=== PATIENT | male | born 1980 | race Caucasian/White ===

== ENCOUNTER 2020-09-21 14:32 | Outpatient (CLI) | payer OTHER, SELFPAY ==
[2020-09-21 15:14] LABS: Hematocrit 43.5 % (42.0-52.0); Hemoglobin 15.2 g/dL (14.0-18.0); Mean Corpuscular HGB Conc 34.9 g/dl (32-36); Mean Corpuscular Hemoglobin 32.3 pg (26-34); Mean Corpuscular Volume 92.4 fl (80-100); Mean Platelet Volume 12.8 fl (7.4-10.4); Platelet Count Result 73 k/mm3 (150-375); Red Blood Count 4.71 M/mm3 (4.6-6.20); Red Cell Distribution Width 12.6 % (11.5-14.5); White Blood Count 7.2 K/mm3 (4.5-10.0)
[2020-09-21 15:25] LABS: Alanine Aminotransferase 163 U/L (4-50); Albumin Level 4.3 g/dL (3.5-5.1); Alkaline Phosphatase 86 U/L (38-126); Anion Gap 6 mmol/L (8-16); Aspartate Amino Transferase 101 U/L (17-59); Bilirubin,Total 1.1 mg/dL (0.2-1.3); Blood Urea Nitrogen 11 mg/dL (9-20); Calcium 9.3 mg/dL (8.4-10.2); Carbon Dioxide 23 mmol/L (22-30); Chloride 108 mmol/L (98-107); Estimated Glomerular Filt Rate > 60; Glucose 116 mg/dL (75-110); Potassium 4.2 mmol/L (3.4-5.0); Sodium 137 mmol/L (137-145)
[2020-09-21 15:29] LABS: INR 1.1; Prothrombin Time 13.6 Seconds (11.1-14.7)
[2020-09-21 16:05] LABS: HIV 1/2 Ab P24 Ag Result Negative (Negative)
[2020-09-23 14:31] LABS: Hepatitis C RNA, Quant PCR 5160000 IU/mL
[2020-09-25 21:54] LABS: HCV Genotype, LiPA 1a
[2020-09-27 15:20] LABS: ALT 124 U/L (9-46); Alpha-2-Macroglobulin 264 mg/dL (106-279); Apolipoprotein A1 90 mg/dL (94-176); Fibrosis Score 0.69; Fibrosis Stage F3; GGT 90 U/L (3-90); Haptoglobin 102 mg/dL (43-212); Necroinflammat Act Grade A3
== END 2020-09-21 14:33 | disposition home or self-care (01) ==
PROVIDERS: Visit Provider Nurse Practitioner Family
DX: R76.8 Other specified abnormal immunological findings in serum (principal)
CPT/HCPCS: 36415; 80053; 81596; 85027; 85610; 86703; 87522; G0432

== ENCOUNTER → 2020-10-11 00:29 | Outpatient (CLI) | payer OTHER, SELFPAY ==
[2020-10-11 20:36] LABS: SARS-CoV-2 RNA PCR Negative
== END ==
PROVIDERS: Visit Provider Internal Medicine Gastroenterology
DX: Z01.812 Encounter for preprocedural laboratory examination (principal); Z20.822 Contact with and (suspected) exposure to COVID-19
CPT/HCPCS: C9803; U0003; U0005

== ENCOUNTER 2020-10-14 01:21 | Day surgery (SDC) | payer OTHER, SELFPAY ==
[2020-10-10 14:00] VITALS: BMI 34.9
[2020-10-14 07:41] VITALS: BP 155/91; PULSE 99; RESP 20; TEMP 36; O2SAT 98
[2020-10-14] MEDS: LACTATED RINGERS 1,000 ML 150 ML IV CONT (07:44)
--- NOTE | 2020-10-14 08:24 | WPDANESEPPF ---
Anes - Initial Pre Proc Eval Procedure: Operation Date: 10/14/20 08:45 Proposed Procedures p Esophagogastroduodenoscopy - Paddy Foster MD Date/Time: 10/14/20 08:24 Surgeon: Paddy Foster MD Pre Op Diagnosis: nausea Patient Data Age: 39 Gender: M Height: 1.85 m Weight: 120.6 kg Last Vital Signs Temp 96.8 F L 10/14/20 07:41 Pulse 99 10/14/20 07:41 Resp 20 10/14/20 07:41 BP 155/91 H 10/14/20 07:41 Pulse Ox 98 10/14/20 07:41 Allergies Allergy/AdvReac Type Severity Reaction Status Date / Time prochlorperazine Allergy Severe Agitated Verified 10/14/20 07:40 [From Compazine] diphenhydramine AdvReac Intermediate Hyperactive Verified 10/14/20 07:40 [From Benadryl] Home Medications Medication Instructions Recorded Confirmed Type No Home Medications 09/21/20 10/10/20 History Patient hx anesthesia problems: none Family hx anesthesia problems: none [facility] Past Medical History Medical History (Updated 09/21/20 @ 17:20 by ELIJAH Kamara) Fatty liver Hepatitis C antibody positive in blood Nausea Tobacco abuse Social History Social History Years smoked: 23 Smoking status: Current every day smoker Tobacco type: cigarettes Alcohol intake: current Substance use: former Substance use type: heroin Other substance usage details: CLEAN FROM HEROIN FOR 5 YEARS 2015 Living arrangements: with family Spiritual care concerns: No Anes - Eval Final PreProcedure Day of Procedure 10/14/20 08:24 Patient weight: obese Heart: regular rate and rhythm Airway: Mallampati scale class II Neurological: alert and oriented Last oral intake: >/= 8 hours ASA classification: III Emergent: no Anesthetic plan: proceed Anesthesia type and monitoring: general GIVS and standard monitoring Informed Consent: The patient's anesthetic plan and its attendant risks and benefits were discussed with the patient/family/POA. Questions were solicited and answers provided to the satisfaction of the patient/family/POA.
--- NOTE | 2020-10-14 08:38 | WPDHPUPDATE1 ---
History and Physical Update Update Date/Time: 10/14/20 08:38 History and Physical has been reviewed, including an updated exam of the patient. There are NO changes in the patient's condition. Risks, benefits, and alternatives have been discussed and questions answered. Patient agrees to proceed with procedure.
[2020-10-14 08:48] VITALS: BP 121/81; PULSE 83; RESP 16; O2SAT 96
[2020-10-14 08:58] VITALS: BP 113/61; PULSE 84; RESP 24; O2SAT 97
[2020-10-14 09:08] VITALS: BP 138/82; PULSE 88; RESP 16; O2SAT 100
== END 2020-10-14 09:12 | disposition home or self-care (01) ==
PROVIDERS: Visit Provider Internal Medicine Gastroenterology
PROC: 0DJ08ZZ Inspection of Upper Intestinal Tract, Via Natural or Artificial Opening Endoscopic (ICD-10-PCS; CPT 43235; principal; 2020-10-14 08:45)
DX: R07.89 Other chest pain (principal); R11.0 Nausea; B19.20 Unspecified viral hepatitis C without hepatic coma; K21.00 Gastro-esophageal reflux disease with esophagitis, without bleeding; K29.70 Gastritis, unspecified, without bleeding; K76.0 Fatty (change of) liver, not elsewhere classified; E66.9 Obesity, unspecified; Z68.35 Body mass index [BMI] 35.0-35.9, adult; Z87.891 Personal history of nicotine dependence
CPT/HCPCS: 43239; 88305; J2704; J7120

== ENCOUNTER 2021-04-18 07:18 | Outpatient (CLI) | payer OTHER, SELFPAY ==
--- NOTE | ~2021-04-18 | US_ITS ---
US right upper quadrant DATE: 04/18/2021 08:00 INDICATION: Abnormal laboratory examinations. Abnormal immunological findings. TECHNIQUE: Real-time imaging of liver, pancreas, gallbladder COMPARISON: 12/04/2013 CT abdomen pelvis FINDINGS: Hepatic steatosis. No hepatic space-occupying mass lesion is evident. Normal hepatopedal po rtal venous flow direction. The common bile duct measures 6 mm, within normal range post cholecystectomy. No pancreatic mass lesion or ductal dilatation is noted. IMPRESSION: Status post cholecystectomy Hepatic steatosis Reviewed, dictated and finalized at [facility]. Reviewed, dictated and finalized at [facility]. 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
[2021-04-18 08:58] LABS: Hematocrit 46.5 % (42.0-52.0); Hemoglobin 16.2 g/dL (14.0-18.0); Immature Platelet Fraction Pct 18.8 % (0.9-11.2); Mean Corpuscular HGB Conc 34.8 g/dl (32-36); Mean Corpuscular Hemoglobin 32.7 pg (26-34); Mean Corpuscular Volume 93.8 fl (80-100); Platelet Count Result 102 k/mm3 (150-375); Red Blood Count 4.96 M/mm3 (4.6-6.20); Red Cell Distribution Width 12.4 % (11.5-14.5)
[2021-04-18 09:04] LABS: Alanine Aminotransferase 36 U/L (4-50); Albumin Level 4.4 g/dL (3.5-5.1); Alkaline Phosphatase 70 U/L (38-126); Anion Gap 3 mmol/L (8-16); Aspartate Amino Transferase 36 U/L (17-59); Bilirubin,Total 0.7 mg/dL (0.2-1.3); Blood Urea Nitrogen 9 mg/dL (9-20); Calcium 9.7 mg/dL (8.4-10.2); Carbon Dioxide 30 mmol/L (22-30); Chloride 104 mmol/L (98-107); Estimated Glomerular Filt Rate > 60; Glucose 133 mg/dL (65-110); Potassium 4.3 mmol/L (3.4-5.0); Sodium 137 mmol/L (137-145)
[2021-04-18 09:17] LABS: Prothrombin Time 12.7 Seconds (11.1-14.7)
[2021-04-21 06:54] LABS: Hepatitis C RNA, Quant PCR <15 IU/mL
== END 2021-04-18 07:19 | disposition home or self-care (01) ==
PROVIDERS: Visit Provider Internal Medicine Gastroenterology
DX: R76.8 Other specified abnormal immunological findings in serum (principal); K76.0 Fatty (change of) liver, not elsewhere classified; Z90.49 Acquired absence of other specified parts of digestive tract
CPT/HCPCS: 36415; 76705; 80053; 85027; 85055; 85610; 87522

== ENCOUNTER 2024-09-05 13:59 | Emergency (ER) | payer OTHER, SELFPAY ==
--- NOTE | ~2024-09-05 | XR_ITS ---
XR hand RT min 3V Ordering provider: Yonis Carrion APRN History: . punching injury, 5th metacarpal pain . Comparison: None. FINDINGS: BONES: Boxers fracture is seen in the fifth toe bone. The angulation is about 18 degrees. JOINT SPACES: Normal. SOFT TISSUES: Normal. IMPRESSION: Boxer's fracture.. Reviewed, dictated and finalized at location [facility]. IMPRESSION: Boxer's fracture..
[2024-09-05 14:06] VITALS: BP 178/100; PULSE 90; RESP 20; TEMP 36.2; O2SAT 98
--- NOTE | 2024-09-05 14:52 | ED_ITS ---
HPI - Extremity Injury (Upper) General Chief Complaint: Extremity Injury, Upper Stated Complaint: Right Hand Injury Time Seen by Provider: 09/05/24 14:35 Source: patient and RN notes reviewed Mode of arrival: ambulatory Limitations: no limitations History of Present Illness HPI narrative: Ceukr[age][id number]-[id number]-old male presents [facility] today complaining right hand injury. Patient said earlier today he punched a Fridge injuring his right hand. Patient reports pain and swelling near the 5th metacarpal. Patient states he is having a hard time bending his left pinky due to pain. Patient denies any numbness or tingling, or any other injuries. Related Data Allergies Allergy/AdvReac Type Severity Reaction Status Date / Time prochlorperazine (From Allergy Severe Agitated Verified 09/05/24 14:44 Compazine) diphenhydramine (From AdvReac Intermediate Hyperactive Verified 09/05/24 14:44 Benadryl) Review of Systems Review of Systems: CONSTITUTIONAL: Denies fever, chills, or sweats. EYES: Denies visual changes, redness, or discharge. ENT: Denies rhinorrhea, congestion, sore throat, or otalgia. CARDIOVASCULAR: Denies chest pain, palpitations, or edema. RESPIRATORY: Denies cough or dyspnea. GASTROINTESTINAL: Denies abdominal pain, nausea, vomiting, or diarrhea. GENITOURINARY: Denies dysuria or hematuria. SKIN: Denies rash, wound, or itching. MUSCULOSKELETAL: Denies back pain, joint pain, or myalgia. Positive for right hand injury and swelling NEUROLOGIC: Denies headache, numbness, or weakness. PSYCHIATRIC: Denies anxiety or depression. All other systems reviewed are negative, except as documented in HPI. [facility] Past Medical History Medical History Cirrhosis Elevated liver enzymes GERD (gastroesophageal reflux disease) Tobacco abuse Nausea Fatty liver Hepatitis C antibody positive in blood Social History Social History Years smoked: 23 Tobacco type: cigarettes Alcohol intake: current Substance use: former Substance use type: heroin Other substance usage details: CLEAN FROM HEROIN FOR 5 YEARS 2016 Living arrangements: with family Spiritual care concerns: No Comments At the time of my signature, I reviewed and agree with the nursing past medical, surgical, social, and family history. There is no relevant family history p ertinent to the patient complaint. Exam Narrative: GENERAL: This is a well-nourished, well-developed adult, in no apparent distress. They are non ill-appearing, nontoxic appearing. HEAD: normocephalic, atraumatic. EYES: Sclera clear/white. Vision is grossly intact. Conjunctiva normal. Extraocular movement intact. EARS: External ears normal Hearing grossly intact. NOSE: External nose normal THROAT: Mucous membranes moist NECK: Neck supple CARDIOVASCULAR: Regular rate and rhythm RESPIRATORY: Respiratory rate normal, respiratory effort nonlabored, no respiratory distress NEURO: awake, alert, and oriented to person, place and time. There were no obvious focal neurologic abnormalities. EXTREMITIES: Right hand: Swelling and slight bruising present over the dorsal surface of the 5th and 4th metacarpal. Patient is able to wiggle his fingers. Patient cannot make a complete fist due to pain in his 5th and 4th digit. Normal pronation and supination of wrist. Normal flexion and extension of wrist. Tenderness to palpation over the distal 5th metacarpal. Capillary refill less than 3 seconds. Right radial Pulse 2 +palpable. Normal sensation. Neurovascular status intact distal injury. BACK: Nontender without deformity. Course Course Emergency Course: Portions of this record may have been created with voice recognition software Level of Care: Express Care Visit Vital Signs Vital signs: Vital Signs Temperature 97.1 F L 09/05/24 14:06 Pulse Rate 90 09/05/24 14:06 Respiratory Rate 20 09/05/24 14:06 Blood Pressure 178/100 H 09/05/24 14:06 Pulse Oximetry 98 09/05/24 14:06 Oxygen Delivery Room Air 09/05/24 14:06 Temperature 97.1 F L 09/05/24 14:06 Pulse Rate 90 09/05/24 14:06 Respiratory Rate 20 09/05/24 14:06 Blood Pressure 178/100 H 09/05/24 14:06 Pulse Oximetry 98 09/05/24 14:06 Oxygen Delivery Room Air 09/05/24 14:06 Reviewed Procedures Orthopedic Splinting/Casting Injury #1: Splinting/Casting Date: 09/05/24 Splinting/Casting Time: 14:54 Side: right Upper Extremity Injury Location: hand Splint: customized in ED OCL: ulnar gutter Pre-Procedure Neuro Vascular Exam: normal Post-Procedure Neuro Vascular Exam: normal Other Orthopedic Equipment: other (Sling for comfort) Additional Comments: Patient tolerated procedure well MDM - Extremity Injury (Upper) MDM Narrative Medical decision making narrative: X-ray of right hand shows boxer fracture to the 5th metacarpal. Slight angulation. No pseudoclaw with flexion or extension of 5th digit. Patient placed in ulnar gutter splint. Will refer patient to hand specialist. Discussed physical exam findings. Advised supportive measures and signs/symptoms to go to the ER. Pt is appropriate for outpt treatment and f/u. Differential Diagnosis Differential diagnosis: Likely fracture of hand and other (Hand sprain, contusion, finger fracture, finger sprain) Imaging Data Radiologist's impression: ITS Impressions Hand X-Ray 09/05/24 14:25 IMPRESSION: Boxer's fracture.. Critical Care Time Critical Care Time Critical Care Time: No Discharge Plan Discharge Clinical Impression: Boxer's fracture Qualifiers: Encounter type: initial encounter Fracture type: closed Qualified Code(s): S62.339A - Displaced fracture of neck of unspecified metacarpal bone, initial encounter for closed fracture Patient Disposition: Home Condition: Stable Instructions: Boxer Fracture (ED) Additional Instructions: Your x-ray shows a boxer fracture to your 5th metatarsal of your right hand. Please wear these splint at all times and keep it dry. You will need to covered in the shower. Please follow-up with a hand specialist in 3-5 days for further evaluation and management of your fracture. You may wear the sling as needed for comfort. You may take Tylenol or ibuprofen as needed for pain. You may apply ice 20 minutes at a time to help with swelling. If you developed any numbness or tingling, blue or cold fingers, excruciating pain, or any serious concerns please go to the ER immediately. 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
== END 2024-09-05 15:29 | disposition home or self-care (01) ==
DX: S62.336A Displaced fracture of neck of fifth metacarpal bone, right hand, initial encounter for closed fracture (principal); W22.8XXA Striking against or struck by other objects, initial encounter; K74.60 Unspecified cirrhosis of liver; K21.9 Gastro-esophageal reflux disease without esophagitis
CPT/HCPCS: 29125; 73130; 99214; A4565; G0463

== ENCOUNTER 2024-09-21 08:04 | Outpatient (CLI) | payer OTHER, SELFPAY ==
--- NOTE | ~2024-09-21 | XR_ITS ---
EXAM/ PROCEDURE: XR hand RT min 3V - 09/21/2024 8:15 CDT HISTORY: 43 years old Male with S62.306A - Unspecified fracture of fifth metacarpal bone,... COMPARISON: 09/05/2024 TECHNIQUE: Three view(s) FINDINGS/ IMPRESSION: Healing boxer's fracture of the fifth metacarpal bone is again seen with unchanged dorsal angulation. Joint spaces are within normal limits. Reviewed, dictated and finalized at location A.
--- OUTSIDE RECORDS SUMMARY | 2024-09-21 08:07 | XMS_ITS | Clinical Summary ---
Author Organization [facility] Address [address] [place] [address] Care Team Providers Care Lie Detector Operator Name Role Phone Ranulfo Jasso MD Primary Care Provider [phone] Allergies Active Allergy Reactions Criticality Noted Date Comments Prochlorperazine Agitation Low 03/31/2017 Diphenhydramine Other (See comments) Low 03/31/2017 Hyperactivity. Medications clindamycin (CLEOCIN) 300 mg capsule Take 1 capsule (300 mg total) by mouth 3 (three) times a day 5 Active escitalopram (LEXAPRO) 10 mg tablet Take 1 tablet (10 mg total) by mouth daily 90 tablet 1 5 Active amLODIPine (NORVASC) 5 mg tablet Take 1 tablet (5 mg total) by mouth daily 90 tablet 1 5 03/14/20 25 Active amLODIPine (NORVASC) 5 mg tablet Take 1 tablet (5 mg total) by mouth daily 90 tablet 1 4 09/15/19 25 Discontinu ed(Reorder ) escitalopram (LEXAPRO) 10 mg tablet Take 1 tablet (10 mg total) by mouth daily 90 tablet 1 4 09/15/19 25 Discontinu ed(Reorder ) amLODIPine (NORVASC) 5 mg tablet Take 1 tablet (5 mg total) by mouth daily 90 tablet 1 5 09/16/19 25 Discontinu ed(Reorder ) escitalopram (LEXAPRO) 10 mg tablet Take 1 tablet (10 mg total) by mouth daily 90 tablet 1 5 09/16/19 25 Discontinu ed(Reorder ) Active Problems Problem Noted Date Diagnosed Date Hyperglycemia 09/14/2024 Annual physical exam 05/08/2023 Assessment & Plan (05/08/2023 3:37 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 Routine blood work ordered/reviewed today. Yearly vision and dental examinations. Class 1 obesity due to exces s calories without serious comorbidity with body mass index (BMI) of 32.0 to 32.9 in adult 05/08/2023 Assessment & Plan (09/14/2024 9:35 AM CDT): Wt Readings from Last 3 Encounters: 09/14/24 108.4 kg (239 lb) 05/08/23 114.8 kg (253 lb) 07/22/22 113.4 kg (250 lb) BMI Readings from Last 3 Encounters: 09/14/24 30.67 kg/m 05/08/23 32.47 kg/m 07/22/22 32.10 kg/m Not at goal of bmi <30 Continue diet and exercise BMI Follow-up includes: nutrition counseling and exercise counseling. 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 Current smoker 05/08/2023 Anxiety and depression 05/08/2023 Assessment & Plan (09/14/2024 9:31 AM CDT): Worsening Not at goal Was withotu medication 2/2 to loss of medical insurance Has had stressful life events lately Pucnhed a freezer, broke his hand Restart lexapro Consider adding buspar as well or other prn Benign hypertension 03/23/2008 Overview (06/21/2016): Benign Hypertension Assessment & Plan (09/14/2024 9:26 AM CDT): BP Readings from Last 3 Encounters: 09/14/24 148/94 05/08/23 148/100 07/23/22 (!) 154/103 Vitals BP 148/94 (BP Location: Left arm, Patient Position: Sitting) Pulse 91 Resp 18 Ht 188 cm (6' 2.02) Wt 108.4 kg (239 lb) SpO2 98% BMI 30.67 kg/m Lab Results Component Value Date POTASSIUM 4.2 07/22/2022 Not at goal at this time Will start norvasc 5 mg every day Assessment & Plan (05/08/2023 3:38 PM TEXTILE DESIGNS SALES 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): BP Readings from Last 3 Encounters: 05/08/23 148/100 07/23/22 (!) 154/103 06/19/21 146/90 Vitals BP 148/100 (BP Location: Right arm, Patient Position: Sitting) Pulse 108 Resp 16 Ht 188 cm (6' 2.02) Wt 114.8 kg (253 lb) SpO2 97% BMI 32.47 kg/m Lab Results Component Value Date POTASSIUM 4.2 07/22/2022 Not at goal at this time Will start norvasc 5 mg every day 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 Primary Care at [address] [place] [address] Ranulfo Jasso MD PSA screen, Lipid panel, Hemoglobin A1c, Additional followed-up results: 4 09/14/2024 10:00 AM CDT Lab [address] [address] Prostate cancer screening; Lipid screening; Hyperglycemia; Benign hypertension 09/14/2024 9:45 AM CDT Office Visit [facility] Primary Care at [address] [place] [address] Ranulfo Jasso MD Benign hypertension (Primary Dx); Class 1 obesity due to excess calories without serious comorbidity with body mass index (BMI) of 32.0 to 32.9 in adult; Closed fracture of right hand with routine healing, subsequent encounter; Anxiety and depression; Hyperglycemia; Lipid screening; Prostate cancer screening from Last 3 Months Immunizations Immunization Administration Dates Next Due Influenza, Unspecified 05/08/2023(Deferred: Silvia ent Refused) Surgical History Surgery Date Site/Laterality Comments OTHER SURGICAL HISTORY 03/18/2004 - 03/17/2005 cholelithiasis: Cholecystectomy INCISION AND DRAINAGE 09/19/2016 Left I & D LLQ abdominal wall abscess Medical History Medical History Date Comments Depression depression; Outc ome: resolved Cholelithiasis cholelithiasis Abscess 09/19/2016 LLQ abdomibnal w all abscess Migraine Family History Medical History Relation Name Comments Hypertension Father Lung cancer Maternal Grandfather Breast cancer Mother Cancer, breast ; Diabetes Mother Hypertension Mother Ovarian cancer Mother Heart disease Mother's Brother Other Sister Cluster Headach e; Relation Name Status Comments Father Alive Maternal Grandfather Mother Alive Mother's Brother Alive Sister Social History Tobacco Use Types Packs/Day Years Used Date Smoking Tobacco: Every Day Cigarettes Smokeless Tobacco: Never Tobacco Cessation:Ready to Q uit: Not Asked; Counseling Given: Not Answered Alcohol Use Standard Drinks/Week Comments Yes 0 (1 standard drink = 0.6 oz pur e alcohol) Rarely a Beer PHQ-2 Answer Date Recorded PHQ-2 Total Score (If total score is 3 or more points, staff should administer the PHQ-9) 0 09/14/2024 Sex and Gender Information Value Date Recorded Sex Assigned at Not on file Legal Sex Male 11:28 PM [employer] DESIG[employer] SALES 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 Gender Identity Not on file Sexual Orientation Not on file Obstetrics History Last Filed Vital Signs Vital Sign Reading Time Taken Comments Blood Pressure 148/94 09/14/2024 9:10 AM CDT Pulse 91 09/14/2024 9:10 AM CDT Temperature 36.6 C (97.9 F) 07/22/2022 10:27 PM CDT Respiratory Rate 18 09/14/2024 9:10 AM CDT Oxygen Saturation 98% 09/14/2024 9:10 AM CDT Inhaled Oxygen Concentration - - Weight 108.4 kg (239 lb) 09/14/2024 9:10 AM CDT Height 188 cm (6' 2.02) 09/14/2024 9:10 AM CDT Body Mass Index 30.67 09/14/2024 9:10 AM CDT Plan of Treatment Health Maintenance Due Date Last Done Comments Hepatitis C Screening 1980 DTaP/Tdap/Td Vaccine (1 - Tdap) 12/14/1991 Varicella Vaccines (1 of 2 - 13+ 2-dose series) 1993 Hepatitis B Screening 1998 Pneumococcal vaccine <65 (1 of 2 - PCV) 12/14/1999 Regular Well Visit/Exam 18-64 05/08/2024 05/08/2023 Influenza Vaccine (#1) 2024 Depression Screening 09/14/2025 09/14/2024, 05/08/2023 HPV Vaccines Aged Out No longer eligi ble based on patient's age to complete this topic Procedures Procedure Name Priority Date/Time Associated Diagnosis Comments EGFR Routine 09/14/2024 10:15 AM CDT Benign hypertension DIFFERENTIAL AUTO Routine 09/14/2024 10: 15 AM CDT Benign hypertension CBC WITH AUTO DIFFERENTIAL Routine 09/14/2024 10:15 AM CDT Benign hypertension COMPREHENSIVE METABOLIC PANEL Routine 09/14/2024 10:15 AM CDT Benign hypertension HEMOGLOBIN A1C Routine 09/14/2024 10:15 AM CDT Hyperglycemia LIPID PANEL Routine 09/14/2024 10:15 AM CDT Lipid screening PSA SCREEN Routine 09/14/2024 10:15 AM CDT Prostate cancer screening from Last 3 Months Results * eGFR (09/14/2024 10:15 AM CDT) eGFR >90 >=60 mL/min/1. 73 m2 Comment: Interpretive Data Reference Interval Normal >/= 90 mL/min/1.73m2 Mildly decreased* 60 - 89 mL/min/1.73m2 Mildly to moderately decreased 45 - 59 mL/min/1.73m2 Moderately to severely decreased 30 - 44 mL/min/1.73m2 Severely decreased 15 - 29 mL/min/1.73m2 Kidney Failure < 15 mL/min/1.73m2 *Relative to young adult level Estimated glomerular filtration rate is determined by the 2020 CKD-EPI equation recommended by the National Kidney Foundation (A Unifying Approach to GFR Estimation: Recommendations of the NKF-ASK Task Force on Reassessing the Inclusion of Race in Diagnosing Kidney Disease, JASN 2020). The CKD-EPI equation should not be used for patients with unstable renal function and has not been validated in children and those over 70. Current interpretive data was last reviewed 2021. Blood 09/14/2024 10:1 5 AM CDT 09/14/2024 10:23 AM CDT us Ranulfo Jasso MD LAB BLOOD ORDERABLES Final Resul t [facility] 1 [facility] Department [place] [address] * Differential, auto (09/14/2024 10:15 AM CDT) Neutrophil abs 3.24 1.50 - 6.50 K/cumm Imm gran abs 0.02 0.00 - 0.10 K/cumm [facility] Lymphocyte abs 2.49 0.80 - 3.30 K/cumm [facility] Monocyte abs 0.24 0.20 - 0.80 K/cumm [facility] Eosinophil abs 0.24 0.00 - 0.50 K/cumm [facility] Basophil abs 0.06 0.00 - 0.10 K/cumm [facility]) Neutrophil pct 51.5 % [facility] Comment: Interpretive Data Percent cell count reference ranges are not reported, since discordance with absolute values may lead to misinterpretation of CBC data. Current Interpretive Data was last revised on 2017. Imm gran pct 0.3 % [facility] Comment: Interpretive Data Percent cell count reference ranges are not reported, since discordance with absolute values may lead to misinterpretation of CBC data. Current Interpretive Data was last revised on 2017. Lymphocyte pct 39.6 % [facility] Comment: Interpretive Data Percent cell count reference ranges are not reported, since discordance with absolute values may lead to misinterpretation of CBC data. Current Interpretive Data was last revised on 2017. Monocyte pct 3.8 % [facility] Comment: Interpretive Data Percent cell count reference ranges are not reported, since discordance with absolute values may lead to misinterpretation of CBC data. Current Interpretive Data was last revised on 2017. Eosinophil pct 3.8 % [facility] Comment: Interpretive Data Percent cell count reference ranges are not reported, since discordance with absolute values may lead to misinterpretation of CBC data. Current Interpretive Data was last revised on 2017. Basophil pct 1.0 % [facility] Comment: Interpretive Data Percent cell count reference ranges are not reported, since discordance with absolute values may lead to misinterpretation of CBC data. Current Interpretive Data was last revised on 2017. Blood 09/14/2024 10:1 5 AM CDT 09/14/2024 10:23 AM CDT us Ranulfo Jasso MD LAB BLOOD ORDERABLES Final Resul t [facility] 1 [facility] Department [place] [address] * PSA screen (09/14/2024 10:15 AM CDT) PSA-Total 0.37 ng/mL Comment: Interpretive Data AGE SEX REFERENCE INTERVAL 0 minutes-150 years Female None 0 minutes-49 years Male None 50-59 years Male 0-3.90 60-69 years Male 0-5.40 70-79 years Male 0-6.20 80-150 years Male 0-6.20 The Magdaleno PSA Total assay procedure was used. Results from different manufacturers or methods may not be comparable. Serial testing should be performed using the same method. Current interpretive data last revised 21. Blood 09/14/2024 10:1 5 AM CDT 09/14/2024 10:23 AM CDT us Ranulfo Jasso MD LAB BLOOD ORDERABLES Final Resul t [facility] 1 [facility] Department [place] [address] * (ABNORMAL) CBC with auto differential (09/14/2024 10:15 AM CDT) WBC 6.29 3.80 - 9.90 K/cumm Hgb 14.7 13.0 - 17.5 g/dL [facility] Hct 43.5 38.9 - 50.3 % [facility] Plt 123(L) 150 - 400 K/cumm [facility] MPV 12.7(H) 9.1 - 12.3 fL [facility] RBC 4.62 4.30 - 5.80 M/cumm [facility] MCV 94.2 81.3 - 96.4 fL [facility] MCH 31.8 27.1 - 33.3 pg [facility] MCHC 33.8 32.3 - 35.7 g/dL [facility] RDW CV 12.3 11.1 - 14.9 % [facility] RDW SD 42.8 35.7 - 48.1 fL [facility] NRBC abs 0.00 0.00 - 0.01 K/cumm [facility]) Blood 09/14/2024 10:1 5 AM CDT 09/14/2024 10:23 AM CDT us Ranulfo Jasso MD LAB BLOOD ORDERABLES Final Resul t [facility] 1 [facility] Department [place] [address] * (ABNORMAL) Hemoglobin A1c (09/14/2024 10:15 AM CDT) Hgb A1C 9.3(H) 4.0 - 5.6 % Estimated Average Glucose 220 mg/dL [facility] ([place]) Comment: The ADA recommends reporting an estimated Average Glucose (eAG) with all Hemoglobin A1c results using the equation derived from a study of 507 normal and diabetic adults. Minority populations were underrepresented and children were not included. (Diabetes Care 31:8762-0197, 2008). The eAG is not equivalent to a fasting glucose. Blood 09/14/2024 10:1 5 AM CDT 09/14/2024 10:23 AM CDT us Ranulfo Jasso MD LAB BLOOD ORDERABLES Final Resul t [facility] ([place] [address] [facility] [place] [address] * (ABNORMAL) Lipid panel (09/14/2024 10:15 AM CDT) Cholesterol 200(H) 30 - 199 mg/dL Comment: Interpretive Data Ages < or = 19 years Acceptable: <170 mg/dL Borderline high: 170-199 mg/dL High: >or= 200 mg/dL Ages > or = 20 years Desirable: <200 mg/dL Borderline high: 200-239 mg/dL High: >or= 240 mg/dL Literature References: 1. Expert Panel on Integrated Guidelines for Cardiovascular Health and Risk Reduction in Children and Adolescents. Pediatrics 2011;128:S213 2. NCEP Expert Panel. Circulation 2004;110:227 Current Interpretive Data was last revised on 2017. Triglycerides 287(H) <=149 mg/dL [facility]) Comment: Interpretive Data Ages < or = 9 years Acceptable: <75 mg/dL Borderline high: 75-99 mg/dL High: >or= 100 mg/dL Ages 10 to 20 years Acceptable: <90 mg/dL Borderline high: 90-129 mg/dL High: >or= 130 mg/dL Ages > or = 20 years Desirable: <150 mg/dL Borderline high: 150-199 mg/dL High: 200-499 mg/dL Very high: >or= 499 mg/dL Literature References: 1. Expert Panel on Integrated Guidelines for Cardiovascular Health and Risk Reduction in Children and Adolescents. Pediatrics 2011;128:S213 2. NCEP Expert Panel. Circulation 2004;110:227 Current Interpretive Data was last revised on 2017. HDL 29(L) >=40 mg/dL [facility]) Comment: Interpretive Data Ages < or = 19 years Acceptable: >45 mg/dL Borderline low: 40-45 mg/dL Low: <40 mg/dL Ages > or = 20 years Desirable: >or= 60 mg/dL Low: <40 mg/dL Literature References: 1. Expert Panel on Integrated Guidelines for Cardiovascular Health and Risk Reduction in Children and Adolescents. Pediatrics 2011;128:S213 2. NCEP Expert Panel. Circulation 2004;110:227 Current Interpretive Data was last revised on 2017. LDL, calculated 120 <=129 mg/dL [facility]) Comment: Interpretive Data Ages < or = 19 years Acceptable: <110 mg/dL Borderline high: 110-129 mg/dL High: >or= 130 mg/dL Ages > or = 20 years Optimal: <100 mg/dL Near optimal: 100-129 mg/dL Borderline high: 130-159 mg/dL High: >160 mg/dL Calculated using the Crow LDL-C estimating equation. This equation was implemented on 2023. Prior to this date LDL-C was estimated using the Friedewald equation. Literature References: 1. Expert Panel on Integrated Guidelines for Cardiovascular Health and Risk Reduction in Children and Adolescents. Pediatrics 2011;128:S213 2. NCEP Expert Panel. Circulation 2004;110:227 3. Crow Lao al. JAILENE Cardiol. 2020 July 16;5(5):540-548. doi: 10.1001/jamacardio.2020.0013 Current Interpretive Data was last revised on 2023. Non-HDL Cholesterol 171 mg/dL [facility]) Comment: Interpretive Data Ages < or = 19 years Acceptable: <120 mg/dL Borderline high: 120-144 mg/dL High: >145 mg/dL Ages > or = 20 years When triglycerides are >200 mg/dL, Non-HDL cholesterol is a secondary target of therapy with treatment goals that are 30 mg/dL greater than the LDL cholesterol target. Literature References: 1. Expert Panel on Integrated Guidelines for Cardiovascular Health and Risk Reduction in Children and Adolescents. Pediatrics 2011;128:S213 2. NCEP Expert Panel. Circulation 2004;110:227 Current Interpretive Data was last revised on 2017. Chol/HDL ratio 7 [facility] Blood 09/14/2024 10:1 5 AM CDT 09/14/2024 10:23 AM CDT us Ranulfo Jasso MD LAB BLOOD ORDERABLES Final Resul t [facility] 1 [facility] Department [place] [address] * (ABNORMAL) Comprehensive metabolic panel (09/14/2024 10:15 AM CDT) Sodium 136 135 - 145 mmol/L Potassium, pl 4.3 3.3 - 4.9 mmol/L [facility] Chloride 105 97 - 110 mmol/L [facility] CO2 22 22 - 32 mmol/L [facility]) Anion gap 10 2 - 15 mmol/L [facility] BUN 14 6 - 25 mg/dL [facility] Creatinine 0.93 0.80 - 1.30 mg/dL [facility] Glucose 291(H) 70 - 199 mg/dL [facility]) Comment: Interpretive Data Fasting glucose >/= 126 mg/dl is diagnostic for diabetes. Fasting is defined as no caloric intake for at least 8 hours. Fasting glucose between 100 mg/dl to 125 mg/dl is diagnostic of prediabetes. In a patient with classic symptoms of hyperglycemia or hyperglycemic crisis, a random glucose >/= 200 mg/dl is diagnostic for diabetes. In the absence of unequivocal hyperglycemia, results should be confirmed by repeat testing. The classification and Diagnosis of Diabetes Diabetes Care 2021; 46: S19-S40. Current interpretive data was last revised 2022. Calcium 9.0 8.5 - 10.3 mg/dL [facility] Bilirubin, total 0.3 0.1 - 1.2 mg/dL [facility]) Protein, pl 7.0 6.5 - 8.5 g/dL [facility]) Albumin 3.7 3.5 - 5.0 g/dL [facility]) Alk phos 105 40 - 130 Units/L [facility]) ALT 33 7 - 55 Units/L [facility]) AST 18 10 - 50 Units/L [facility]) Blood 09/14/2024 10:1 5 AM CDT 09/14/2024 10:23 AM CDT us Ranulfo Jasso MD LAB BLOOD ORDERABLES Final Resul t [facility] ([place]) 1 [facility] Department [place] [address] from Last 3 Months Insurance Care Teams Lie Detector Operator Relationship Specialty Start Date End Date Ranulfo Jasso MD [address] [place] [address] [address] PCP - General Family Medicine 05/08/23
--- OUTSIDE RECORDS SUMMARY | 2024-09-21 08:08 | XMS_ITS | Referral Summary ---
Author Organization [facility] Address [address] [place] [phone] Care Team Providers Care Senior Application Programmer Name Role Phone Ranulfo Jasso MD Primary Care Provider [phone] Encounters Date Type Department Care Team Description 09/15/2024 Telephone [facility] [address] [place] [phone] Ranulfo Jasso MD Med Refill 09/15/2024 Results Follow-Up [facility] Primary Care at [address] [phone] Ranulfo Jasso MD PSA screen, Lipid panel, Hemoglobin A1c, Additional followed-up results: 4 09/14/2024 10:00 AM CDT Lab [address] [phone] Prostate cancer screening; Lipid screening; Hyperglycemia; Benign hypertension 09/14/2024 9:45 AM CDT Office Visit [facility] Primary Care at [address] [phone] Ranulfo Jasso MD Benign hypertension (Primary Dx); Class 1 obesity due to excess calories without serious comorbidity with body mass index (BMI) of 32.0 to 32.9 in adult; Closed fracture of right hand with routine healing, subsequent encounter; Anxiety and depression; Hyperglycemia; Lipid screening; Prostate cancer screening from Last 3 Months Allergies Active Allergy Reactions Criticality Noted Date [...] 05/08/2023 Assessment & Plan (05/08/2023 3:37 PM IN HOUSE CRA): Discussed lifestyle modifications, diet and exercise. Routine [...] counseling. Assessment & Plan (05/08/2023 3:38 PM IN HOUSE CRA): Wt Readings from Last 3 Encounters: 05/08/23 [...] day Assessment & Plan (05/08/2023 3:38 PM IN HOUSE CRA): BP Readings from Last 3 Encounters: 05/08/23 [...] 03/23/2008 Overview (06/21/2016): MGRN WO AURA WO NTRC MGR Immunizations Immunization Administration Dates Next Due Influenza, Unspecified 05/08/2023(Deferred: Silvia ent Refused) Social History Tobacco Use Types Packs/Day Years [...] on file Legal Sex Male 11:28 PM IN HOUSE CRA Gender Identity Not on file Sexual Orientation Not on file Last Filed Vital Signs Vital Sign Reading [...] 09/14/2024 9:10 AM CDT Plan of Treatment Not on file Procedures Procedure Name Priority Date/Time Associated Diagnosis [...] BLOOD ORDERABLES Final Resul t [facility] CAB[place]O) [address] [facility] Department [place] [address] * Differential, auto (09/14/2024 10:15 AM CDT) [...] Neutrophil pct 51.5 % [facility] (RAPHAEL) Comment: Interpretive Data Percent cell count reference ranges are not reported, since discordance with absolute values may lead to misinterpretation of CBC data. Current Interpretive Data was last revised on 2017. Imm gran pct 0.3 % [facility] (RAPHAEL) Comment: Interpretive Data Percent cell [...] revised on 2017. Monocyte pct 3.8 % [facility] ([place]APHAEL) Comment: Interpretive Data Percent cell [...] revised on 2017. Basophil pct 1.0 % [facility] (RAPHAEL) Comment: Interpretive Data Percent cell count reference ranges are not reported, since discordance with absolute values may lead to misinterpretation of CBC data. Current Interpretive Data was last revised on 2017. Blood 09/14/2024 10:1 5 AM CDT 09/14/2024 10:23 AM CDT us Ranulfo Jasso MD LAB BLOOD ORDERABLES Final Resul t IVETT MOORE (RAPHAEL) 1 [facility] [place] [address] * PSA screen (09/14/2024 10:15 AM CDT) [...] MD LAB BLOOD ORDERABLES Final Resul t Performing Organization Address City/[facility]/ZIP Co de Phone Number IVETT MOORE (CABALLO) 1 [facility] [place] [address] * (ABNORMAL) CBC with auto differential (09/14/2024 [...] (RAPHAEL) MCV 94.2 81.3 - 96.4 fL IVETT MOORE (RAPHAEL) MCH 31.8 27.1 - 33.3 pg IVETT MOORE (RAPHAEL) MCHC 33.8 32.3 - 35.7 g/dL IVETT MOORE (RAPHAEL) RDW CV 12.3 11.1 - 14.9 % IVETT MOORE ([place]O) RDW SD 42.8 35.7 - 48.1 fL IVETT [facility] (CAB[place]O) NRBC abs 0.00 0.00 - 0.01 K/cumm IVETT [facility] (CAB[place]O) Blood 09/14/2024 10:1 5 AM CDT 09/14/2024 10:23 AM CDT Ranulfo Jasso MD LAB BLOOD ORDERABLES Final Resul t Performing Organization Address [facility] de Phone Number IVETT RamosCABALLO) [address] [place] [address] [place] [address] * (ABNORMAL) Hemoglobin A1c (09/14/2024 10:15 AM CDT) Hgb A1C 9.3(H) 4.0 - 5.6 % Estimated Average Glucose 220 mg/dL IVETT MOORE ([place]AB[place]O) Comment: The ADA recommends reporting an estimated Average Glucose (eAG) with all Hemoglobin A1c results using the equation derived from a study of 507 normal and diabetic adults. Minority populations were underrepresented and children were not included. (Diabetes Care 31:6808-6278, 2008). The eAG is not equivalent to a fasting glucose. Blood 09/14/2024 10:1 5 AM CDT 09/14/2024 10:23 AM CDT Ranulfo Jasso MD LAB BLOOD ORDERABLES Final Resul t IVETT RamosCABALLO) 1 [facility] [place] [address] * (ABNORMAL) Lipid panel (09/14/2024 10:15 AM [...] revised on 2017. Triglycerides 287(H) <=149 mg/dL IEVTT MOORE (RAPHAEL) Comment: Interpretive Data Ages < [...] NCEP Expert Panel. Circulation 2004;110:227 3. Crow Peterson et al. JAILENE Cardiol. 2019July 16;5(5):540-548. doi: 10.1001/jamacardio.2020.0013 Current Interpretive Data was [...] last revised on 2017. Chol/HDL ratio 7 GABBY MOORE (RAPHAEL) Blood 09/14/2024 10:1 5 AM CDT 09/14/2024 10:23 AM CDT us Ranulfo Jasso MD LAB BLOOD ORDERABLES Final Resul t IVETT MOORE (RAPHAEL) 1 [facility] Department of Laboratories [place], [place] [id number] * (ABNORMAL) Comprehensive metabolic panel (09/14/2024 10:15 AM CDT) Sodium 136 135 - 145 mmol/L Potassium, pl 4.3 3.3 - 4.9 mmol/L IVETT MOORE (RAPHAEL) Chloride 105 97 - 110 mmol/L [facility] ([place]APHAEL) CO2 22 22 - 32 mmol/L [facility] ([place]APHAEL) Anion gap 10 2 - 15 mmol/L [facility] (RAPHAEL) BUN 14 6 - 25 mg/dL [facility] (RAPHAEL) Creatinine 0.93 0.80 - 1.30 [...] Final Resul t [facility] (RAPHAEL) 1 [facility] Department [place] [address] from Last 3 [place] [address] [facility] Care Teams Senior Application Programmer Relationship Specialty Start Date End Date Ranulfo Jasso MD [address] [facility] [facility] [place] [address] PCP - General Family Medicine 05/08/23
--- OUTSIDE RECORDS SUMMARY | 2024-09-21 08:08 | XMS_ITS | Clinical Summary ---
Author Organization [facility] Address [address] [place] [address] Phone Care Team Providers Care Budget Manager Name Role Phone Provider, None Primary Care Provider Unavailabl e Allergies Active Allergy Reactions Criticality Noted Date Comments Diphenhydramine Unknown 02/06/2018 Prochlorperazine Unknown 09/12/2016 Medications metoprolol tartrate (LOPRESSOR) 25 MG Tablet Take 25 mg by mouth 2 times daily. Active LOSARTAN POTASSIUM PO Take by mouth. Active Meloxicam 15 MG Tablet Take 1 Tab by mouth daily. 10 Tab 09/16/2016 Active methocarbamol (ROBAXIN) 750 MG Tablet Take 1 Tab by mouth 4 times daily as needed for up to 20 doses. 20 Tab 11/29/2016 Active Clindamycin HCl (CLEOCIN) 300 MG Capsule Take 1 Capsule by mouth every 8 hours for 7 days. 21 Capsule 09/10/2024 09/18/19 25 Encounters Date Type Department Care Team Description 09/10/2024 11:51 AM CDT - 09/10/2024 1:53 PM CDT Emergency 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 Gender Identity Not on file Sexual Orientation Not on file Last Filed Vital Signs Vital Sign Reading Time Taken Comments Blood Pressure 150/101 09/10/2024 1:45 PM CDT Pulse 100 09/10/2024 1:45 PM CDT Temperature 36.6 C (97.9 F) 09/10/2024 12:01 PM CDT Respiratory Rate 16 09/10/2024 1:45 PM CDT Oxygen Saturation 98% 09/10/2024 1:45 PM CDT Inhaled Oxygen Concentration - - Weight 106.6 kg (235 lb) 09/10/2024 12:01 PM CDT Height 182.9 cm (6') 09/10/2024 12:01 PM CDT Body Mass Index 31.87 09/10/2024 12:01 PM CDT Plan of Treatment Health Maintenance Due Date Last Done Comments Hepatitis C Virus (HCV) Screening 1980 TdaP Immunization 1980 Human Papillomavirus (HPV) Immunization (1 - Male 3-dose series) 12/14/1995 Hepatitis B Immunization (1 of 3 - 19+ 3-dose series) 12/14/1999 Pneumococcal Immunization Co mbined (1 of 2 - PCV) 12/14/1999 SARS-COV-2 Immunization (1 - 2023- season) 2023 Influenza Immunization (#1) 2024 Respiratory Syncytial Virus (RSV) Immunization (Adult) (1 - 1-dose 75+ series) 12/14/2055 Meningococcal Immunization (ACWY) Aged Out No longer eligible based on patient's age to complete this topic Rotavirus Immunization Aged Out No lo nger eligible based on patient's age to complete this topic Procedures Procedure Name Priority Date/Time Associated Diagnosis Comments CT ABDOMEN PELVIS W/ CONTRAST Stat with Interpretation 09/10/2024 12:58 PM CDT GOLD TOP TUBE STAT 09/10/2024 12:06 PM CDT BLUE TOP TUBE STAT 09/10/2024 12:06 PM CDT CBC WITH AUTO DIFFERENTIAL STAT 09/10/2024 12:06 PM CDT EXTRA TUBES STAT 09/10/2024 12:06 PM CDT LACTIC ACID (LACTATE) STAT 09/10/2024 12:06 PM CDT MAGNESIUM (MG) STAT 09/10/2024 12:06 PM CDT CMP (COMPREHENSIVE METABOLIC PANEL) STAT 09/10/2024 12:06 PM CDT COMPLETE BLOOD COUNT (CBC) WITH DIFF STAT 09/10/2024 12:06 PM CDT from Last 3 Months Results * CT ABDOMEN PELVIS W/ CONTRAST (09/10/2024 12:58 PM CDT) Anatomical Region Laterality Modality Abdomen N/A Computed Tomogra phy 09/10/2024 1:16 PM CDT Impressions 09/10/2024 1:18 PM CDT IMPRESSION: 1. Bilateral small to moderate-sized fat containing inguinal hernias without signs of inflammation or herniated bowel. 2. Somewhat nodular capsular surface of the liver could indicate a degree of cirrhosis. Narrative 09/10/2024 1:18 PM CDT EXAM DESCRIPTION: CT ABDOMEN PELVIS W/ CONTRAST REASON FOR STUDY: Pain and swelling to the right inguinal area with wounds and possible abscess x 2 days. TECHNIQUE: CT scan of the abdomen and pelvis performed with intravenous and without oral contrast using helical scanning technique with dynamic intravenous contrast injection. Reconstructed coronal and sagittal MPR images reviewed. All images stored on PACS. Automated exposure control was used as a dose optimization technique for this examination. CONTRAST TYPE/DOSE: 100mL of IOPAMIDOL 76 % IV SOLN injected via Intravenous COMPARISON: 03/11/2014 FINDINGS: LOWER CHEST: No significant pulmonary abnormalities. No effusion. LIVER: Normal size. Somewhat nodular capsular surface could indicate a degree of cirrhosis. This is more pronounced than prior exam. Please correlate clinically and with laboratory values. GALLBLADDER: Surgically absent with clips in place. BILE DUCTS: No intrahepatic or extrahepatic ductal dilatation. SPLEEN: Normal size. No focal lesions. PANCREAS: No identified cystic or solid masses. No significant calcifications. No adjacent inflammation or peripancreatic fluid collections. Pancreatic duct not dilated. ADRENALS: Normal. KIDNEYS/URINARY TRACT: No identified significant cystic or solid masses. No visualized stones. No hydronephrosis or hydroureter. Symmetric enhancement. Urinary bladder is unremarkable. GI: No dilated bowel loops. No obvious wall thickening. Normal appendix. No significant diverticular disease. PERITONEUM: No ascites or free air. RETROPERITONEUM: No mass or adenopathy. REPRODUCTIVE: No significant abnormality. VASCULATURE: No abdominal aortic aneurysm. MUSCULOSKELETAL: Bilateral small to moderate-sized fat containing inguinal hernias. No associated fluid collection, induration, adenopathy. No herniated loops of bowel. OTHER: No other abnormality. THIS IS AN ELECTRONICALLY VERIFIED FINAL REPORT 09/10/2024 1:16 PM - Electronically signed by David Lancasetr M.D. RB: AVI Report ID: [id number] Reading Location: [id number] Procedure Note David Lancaster MD - 09/10/2024 EXAM DESCRIPTION: CT ABDOMEN PELVIS W/ CONTRAST REASON FOR STUDY: Pain and swelling to the right inguinal area with wounds and possible abscess x 2 days. TECHNIQUE: CT scan of the abdomen and pelvis performed with intravenous and without oral contrast using helical scanning technique with dynamic intravenous contrast injection. Reconstructed coronal and sagittal MPR images reviewed. All images stored on PACS. Automated exposure control was used as a dose optimization technique for this examination. CONTRAST TYPE/DOSE: 100mL of IOPAMIDOL 76 % IV SOLN injected via Intravenous COMPARISON: 03/11/2014 FINDINGS: LOWER CHEST: No significant pulmonary abnormalities. No effusion. LIVER: Normal size. Somewhat nodular capsular surface could indicate a degree of cirrhosis. This is more pronounced than prior exam. Please correlate clinically and with laboratory values. GALLBLADDER: Surgically absent with clips in place. BILE DUCTS: No intrahepatic or extrahepatic ductal dilatation. SPLEEN: Normal size. No focal lesions. PANCREAS: No identified cystic or solid masses. No significant calcifications. No adjacent inflammation or peripancreatic fluid collections. Pancreatic duct not dilated. ADRENALS: Normal. KIDNEYS/URINARY TRACT: No identified significant cystic or solid masses. No visualized stones. No hydronephrosis or hydroureter. Symmetric enhancement. Urinary bladder is unremarkable. GI: No dilated bowel loops. No obvious wall thickening. Normal appendix. No significant diverticular disease. PERITONEUM: No ascites or free air. RETROPERITONEUM: No mass or adenopathy. REPRODUCTIVE: No significant abnormality. VASCULATURE: No abdominal aortic aneurysm. MUSCULOSKELETAL: Bilateral small to moderate-sized fat containing inguinal hernias. No associated fluid collection, induration, adenopathy. No herniated loops of bowel. OTHER: No other abnormality. THIS IS AN ELECTRONICALLY VERIFIED FINAL REPORT 09/10/2024 1:16 PM - Electronically signed by David Lancaster M.D. RB: RB Report ID: [id number] Reading Location: [place] [address] IMPRESSION: 1. Bilateral small to moderate-sized fat containing inguinal hernias without signs of inflammation or herniated bowel. 2. Somewhat nodular capsular surface of the liver could indicate a degree of cirrhosis. Compa Wharton MD IMG CT ORDERABLES Final R esult * Gold Top Tube (09/10/2024 12:06 PM CDT) Blood No Phlebotomy Charged / Unknown 09/10/2024 12:06 PM CDT 09/10/2024 12:15 PM CDT Compa Wharton MD CHEMISTRY ORDERABLES Arielle l Result Performing Organization Address [facility] Co de Phone Number [facility] [address] [place] [address] * Blue Top Tube (09/10/2024 12:06 PM CDT) Blood No Phlebotomy Charged / Unknown 09/10/2024 12:06 PM CDT 09/10/2024 12:15 PM CDT Compa Wharton MD HEMATOLOGY ORDERABLES Fin al Result Performing Organization Address [facility] Co de Phone Number [facility] [address] [place] [address] * (ABNORMAL) CBC with Auto Differential (09/10/2024 12:06 PM CDT) WBC 9.10 4.00 - 12.00 10(3)/mcL 09/10/2024 12:50 PM CDT [facility] RBC 5.01 4.40 - 5.80 10(6)/mcL 09/10/2024 12:50 PM CDT [facility] HEMOGLOBIN (HGB) 15.7 13.0 - 16.5 g/dL 09/10/2024 12:50 PM CDT [facility] HEMATOCRIT (HCT) 46.4 38.0 - 50.0 % 09/10/2024 12:50 PM CDT [facility] MCV 92.6 82.0 - 96.0 fL 09/10/2024 12:50 PM CDT [facility] MCH 31.3 26.0 - 32.0 pg 09/10/2024 12:50 PM CDT [facility] MCHC 33.8 31.0 - 36.0 g/dL 09/10/2024 12:50 PM CDT [facility] PLATELET COUNT 128(L) 140 - 440 10(3)/[facility] 09/10/2024 12:50 PM CDT [facility] RDW 12.5 11.8 - 15.5 % 09/10/2024 12:50 PM CDT [facility] MPV 13.4(H) 8.0 - 12.6 fL 09/10/2024 12:50 PM CDT [facility] NEUTROPHILS 53.3 40.0 - 68.0 % 09/10/2024 12:50 PM CDT [facility] LYMPHOCYTES 38.4 19.0 - 49.0 % 09/10/2024 12:50 PM CDT [facility] MONOCYTES 4.1 3.0 - 13.0 % 09/10/2024 12:50 PM CDT [facility] EOSINOPHILS 3.2 0.0 - 8.0 % 09/10/2024 12:50 PM CDT [facility] BASOPHILS 0.7 0.0 - 1.0 % 09/10/2024 12:50 PM CDT [facility] IMMATURE GRANULOCYTE 0.3 0.0 - 0.4 % 09/10/2024 12:50 PM CDT [facility] Comment:Immature Granulocyte s includes Metamyelocytes, Myelocytes, and Promyelocytes. ABSOLUTE NEUTROPHILS 4.86 1.40 - 5.30 10(3)/[facility] 09/10/2024 12:50 PM CDT [facility] ABSOLUTE LYMPHOCYTES 3.49(H) 0.90 - 3.30 10(3)/[facility] 09/10/2024 12:50 PM CDT [facility] ABSOLUTE MONOCYTES 0.37 0.10 - 0.90 10(3)/[facility] 09/10/2024 12:50 PM CDT [facility] ABSOLUTE EOSINOPHIL 0.29 0.00 - 0.50 10(3)/[facility] 09/10/2024 12:50 PM CDT [facility] ABSOLUTE BASOPHILS 0.06 0.00 - 0.10 10(3)/[facility] 09/10/2024 12:50 PM CDT [facility] ABSOLUTE IMMATURE GRANULOCYTE 0.03 0.00 - 0.03 10 (3) mcL. 09/10/2024 12:50 PM CDT [facility] NRBC PER 100 WBC 0 09/11/19 12:50 PM CDT [facility] RESULTS ARE CONSISTENT WITH PERIPHERAL SMEAR REVIEW Yes 09/10/2024 12:50 PM CDT [facility] RBC MORPHOLOGY CONSISTENT WITH INDICES Yes 09/10/2024 12:50 PM CDT [facility] GIANT PLATELETS 1+ 12:50 PM CDT [facility] LARGE PLATELETS 1+ 12:50 PM CDT [facility] Blood Venipuncture / Unknown 09/10/2024 12:06 PM CDT 09/10/2024 12:15 PM CDT us Compa Wharton MD HEMATOLOGY ORDERABLES Fin al Result [facility] [address] [place] [address] * Magnesium (09/10/2024 12:06 PM CDT) MAGNESIUM 1.8 1.6 - 2.6 mg/dL 09/10/2024 12:41 PM CDT [facility] Blood Venipuncture / Unknown 09/10/2024 12:06 PM CDT 09/10/2024 12:14 PM CDT us Compa Wharton MD CHEMISTRY ORDERABLES Arielle l Result Performing Organization Address City/[facility]/ZIP Co de Phone Number [facility] [address] [place] [address] * (ABNORMAL) Lactic Acid (Lactate) (09/10/2024 12:06 PM CDT) Pathologist [facility] LACTIC ACID 2.3(H) 0.7 - 2.0 mmol/L 09/10/2024 12:36 PM CDT [facility] Comment: Specimen is hemolyzed. In vitro hemolysis could affect results. Clinical correlation advised. Blood Venipuncture / Unknown 09/10/2024 12:06 PM CDT 09/10/2024 12:14 PM CDT us Compa Wharton MD CHEMISTRY ORDERABLES Arielle l Result Performing Organization Address City/[facility]/ZIP Co de Phone Number [facility] [address] [place] [address] * (ABNORMAL) CMP (09/10/2024 12:06 PM CDT) SODIUM 134(L) 136 - 145 mmol/L 09/10/2024 12:41 PM CDT [facility] POTASSIUM 4.1 3.5 - 5.1 mmol/L 09/10/2024 12:41 PM CDT [facility] CHLORIDE 100 98 - 107 mmol/L 09/10/2024 12:41 PM CDT [facility] CO2, VENOUS 24 22 - 30 mmol/L 09/10/2024 12:41 PM CDT [facility] ANION GAP 14.1 <18.0 mmol/L 09/10/2024 12:41 PM CDT [facility] GLUCOSE 438(HH) 70 - 99 mg/dL 09/10/2024 12:41 PM CDT [facility] BUN 16 9 - 21 mg/dL 09/10/2024 12:41 PM CDT [facility] CREATININE, BLOOD 1.08 0.70 - 1.30 mg/dL 09/10/2024 12:41 PM CDT [facility] BUN/CREATININE RATIO 15 12 - 20 ratio 09/10/2024 12:41 PM CDT [facility] TOTAL PROTEIN 7.9 6.0 - 8.0 g/dL 09/10/2024 12:41 PM CDT [facility] ALBUMIN 4.5 3.5 - 5.0 g/dL 09/10/2024 12:41 PM CDT [facility] A/G RATIO 1.3 1.0 - 2.2 09/10/2024 12:41 PM CDT [facility] CALCIUM 9.8 8.7 - 10.5 mg/dL 09/10/2024 12:41 PM CDT [facility] T BILI 0.8 0.2 - 1.2 mg/dL 09/10/2024 12:41 PM CDT [facility] SGOT (AST) 36 <43 U/L 09/10/2024 12:41 PM CDT [facility] SGPT (ALT) 87(H) <56 U/L 09/10/2024 12:41 PM CDT [facility] ALKALINE PHOSPHATASE 112 40 - 150 U/L 09/10/2024 12:41 PM CDT [facility] GFR, ESTIMATED >60 >=60 09/10/2024 12:41 PM CDT [facility] Comment: Creatinine Clearance is the preferred criteria for selecting drug dose adjustments in renally impaired patients. The GFR is provided as additional pertinent clinical information. GFR is reported in mL/min/1.73 sq m. Calculation based on the Chronic Kidney Disease Epidemiology Collaboration (CKD- EPI) equation refit without adjustment for race. GFR, EST. >60 >=60 025 12:[address] [facility] GFR, EST. NONAFRICAN >60 >=60 09/10/2024 12:[address] [facility] Blood Venipuncture / Unknown 09/10/2024 12:06 PM CDT 09/10/2024 12:14 PM CDT us Compa Wharton MD CHEMISTRY ORDERABLES Arielle guevara Result [facility] [address] [place] [address] from Last 3 Months Insurance MEDICAID [employer] Care Teams Budget Manager Relationship Specialty Start Date End Date Provider, None [place] PCP - General 03/05/24
--- OUTSIDE RECORDS SUMMARY | 2024-09-21 08:08 | XMS_ITS | Encounter Summary ---
Author Organization [facility] Address [address] [place] [address] Care Team Providers Care Supervisor Coffee Name Role Phone No, Physician Primary Care Provider [phone] Unknown, Notinfile Primary Care Provider Unavail able Ranulfo Jasso MD Primary Care Provider [phone] Encounter Details Date Type Department Care Team (Latest Contact Info) Description 12/20/2019 Ophth Exam Ophthalmology Kasandra Hernandez MD [address] [facility] [address] [place] [address] Social History Tobacco Use Types Packs/Day Years Used Date Smoking Tobacco: Every Day Cigarettes Smokeless Tobacco: Never Alcohol Use Standard Drinks/Week Comments Yes 0 (1 standard drink = 0.6 oz pur e alcohol) Rarely a Beer Sex and Gender Information Value Date Recorded Sex Assigned at Not on file 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 Gender Identity Not on file Sexual Orientation Not on file documented as of this encounter Plan of Treatment Not on file documented as of this encounter Visit Diagnoses Not on filedocumented in this encounter Eye Exam Visual Acuity Right eye Left eye Near cc 20/20 20/20 Tonometry (Tonopen, 3:54 PM) Right eye Left eye Pressure 21 19 Pupils Dark Light Shape React APD Right eye 4 2 Round Brisk None Left eye 4 2 Round Brisk None Visual Jain Right eye Left eye Full Full Extraocular Movement Right eye Left eye Full Full Neuro/Psych Oriented x3: Yes Mood/Affect: Normal Dilation Both eyes: 1.0% Mydriacyl, 2 .5% Phenylephrine @ 3:55 PM Color Right eye Left eye Ishihara 16 External Exam Right eye Left eye External Normal Normal Slit Lamp Exam Right eye Left eye Lids/Lashes Normal Normal Conjunctiva/Sclera White and quiet White and wilder et Cornea Clear Clear Anterior Chamber Deep and quiet Deep and quiet Iris Round and reactive Round and cody ctive Lens Clear Clear Vitreous Normal, no gross vitritis Normal , no gross vitritis Fundus Exam Right eye Left eye Disc Normal, [place] margins PPA superi carlota otherwise crisp Macula Normal, flat Normal, flat Vessels Normal in contour, calibur Katiana l in contour, calibur Periphery Normal, no heme, no exudates Nor mal, no heme, no exudates Care Teams Supervisor Coffee Relationship Specialty Start Date End Date No, Physician PCP - General 09/18/16 07/21/22 Unknown, Notinfile PCP - General 07/22/22 05/07/23 Ranulfo Jasso MD [address] [facility] [address] [place] [address] PCP - General Family Medicine 05/08/23 documented as of this encounter
--- OUTSIDE RECORDS SUMMARY | 2024-09-21 08:08 | XMS_ITS | Continuity of Care Document ---
Author Organization [facility] Address [address] [place] [address] Phone Care Team Providers Care Supervisor Mails Name Role Phone Heber Monsivais MD Unavailable Unavailable Advance Directives Directive Yes / No Effective Date File Name No Information Encounters Encounter Description Practice Location Reason(s) For Visit Diagnoses Date Provider Providers Copied on Encounter [facility], [address], [place], [place], [id number], [place] tel:[phone] [facility] Professional No Information Sep-2 0-200 0 Yodit Buck. [address] [facility], [address], [place], [place], [address], [place]. tel:[phone] Referring Provider: Julio C Floyd MD, [address], [place], [address]. tel:[phone] Family History Family Member Type Diagnosis Age At Onset No Information Payers Payer name Insurance type Covered republican ID Authoriza tion(s) No Information Social History Type Description Quantity Date Captured Comments Sex Male Smoking Status No Information Chief Complaint And Reason For Visit No Information Reason For Referral Reason For Referral No Information History Of Present Illness Encounter Date Complaint History Of Prese nt Illness No Information Functional Status Date Functional Assessmen t No Information Instructions Date Instruction Additional Infor mation No Information Assessments Type Assessment Date No Information Patient Care Teams Name Effective Dates (start - stop) Status Members No Information
== END 2024-09-21 08:05 | disposition home or self-care (01) ==
PROVIDERS: Visit Provider Plastic Surgery
DX: S62.306D Unspecified fracture of fifth metacarpal bone, right hand, subsequent encounter for fracture with routine healing (principal); X58.XXXD Exposure to other specified factors, subsequent encounter
CPT/HCPCS: 73130

== ENCOUNTER 2024-10-27 19:52 | Emergency (ER) | payer OTHER, SELFPAY ==
--- OUTSIDE RECORDS SUMMARY | 2024-10-27 19:53 | XMS_ITS | Clinical Summary ---
Author Organization [facility] Address [address] [place] [address] Care Team Providers Care Health Sciences Program Coordinator Name Role Phone Ranulfo Jasso MD Primary Care Provider [phone] Allergies Active Allergy Reactions Criticality Noted Date Comments Prochlorperazine Agitation Low 03/31/2017 Diphenhydramine Other (See comments) Low 03/31/2017 Hyperactivity. Medications clindamycin (CLEOCIN) 300 mg capsule Take 1 capsule (300 mg total) by mouth 3 (three) times a day 09/10/2024 Active escitalopram (LEXAPRO) 10 mg tablet Take 1 tablet (10 mg total) by mouth daily 90 tablet 1 09/15/2024 Active amLODIPine (NORVASC) 5 mg tablet Take 1 tablet (5 mg total) by mouth daily 90 tablet 1 09/15/2024 Active Active Problems Problem Noted Date Diagnosed Date Hyperglycemia 09/14/2024 Annual physical exam 05/08/2023 Assessment & Plan (05/08/2023 3:37 PM ACCOUNT SERVICES MANAGER): Discussed lifestyle modifications, diet and exercise. Routine [...] counseling. Assessment & Plan (05/08/2023 3:38 PM ACCOUNT SERVICES MANAGER): Wt Readings from Last 3 Encounters: 05/08/23 [...] day Assessment & Plan (05/08/2023 3:38 PM ACCOUNT SERVICES MANAGER): BP Readings from Last 3 Encounters: 05/08/23 [...] (06/21/2016): MGRN WO AURA WO NTRC MGR Encounters Date Type Department Care Team Description 09/15/2024 Telephone [facility] [address] [address] Ranulfo Jasso MD Med Refill 09/15/2024 Results Follow-Up [facility] Primary Care at [address] [address] Ranulfo Jasso MD PSA screen, Lipid panel, Hemoglobin A1c, Additional followed-up results: 4 09/14/2024 10:00 AM CDT Lab [address] [address] Prostate cancer screening; Lipid screening; Hyperglycemia; Benign hypertension 09/14/2024 9:45 AM CDT Office Visit [facility] Primary Care at [address] [address] Ranulfo Jasso MD Benign hypertension (Primary Dx); [...] on file Legal Sex 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 Gender Identity Not on file Sexual Orientation [...] <65 (1 of 2 - PCV) 12/14/1999 HPV Vaccines (1 - 3-dose SCDM series) 12/14/2007 Regular Well Visit/Exam 18-64 05/08/2024 05/08/2023 Influenza Vaccine (#1) 2024 Depression Screening 09/14/2025 09/14/2024, 05/08/19 24 Procedures Procedure Name Priority Date/Time Associated Diagnosis [...] MD LAB BLOOD ORDERABLES Final Resul t [facility] ([place]) 1 [facility] Department [place] [address] * Differential, auto (09/14/2024 10:15 AM CDT) Neutrophil abs 3.24 1.50 - 6.50 K/cumm Imm gran abs 0.02 0.00 - 0.10 K/cumm [facility] ([place]) Lymphocyte abs 2.49 0.80 - 3.30 K/cumm [facility] ([place]) Monocyte abs 0.24 0.20 - 0.80 K/cumm [facility] ([place]) Eosinophil abs 0.24 0.00 - 0.50 K/cumm [facility] ([place]) Basophil abs 0.06 0.00 - 0.10 K/cumm [...] revised on 2017. Basophil pct 1.0 % [facility] ([place]) Comment: Interpretive Data Percent cell count reference ranges are not reported, since discordance with absolute values may lead to misinterpretation of CBC data. Current Interpretive Data was last revised on 2017. Blood 09/14/2024 10:1 5 AM CDT 09/14/2024 10:23 AM CDT Ranulfo Jasso MD LAB BLOOD ORDERABLES Final Resul t Performing Organization Address [facility] de Phone Number [facility] ([place]) [address] [place] [address] [place] [address] * PSA screen (09/14/2024 10:15 AM CDT) [...] ORDERABLES Final Resul t Performing Organization Address City/[facility] Co de Phone Number [facility] [place] ([place]) 1 [facility] [place] [address] * (ABNORMAL) CBC with auto differential (09/14/2024 10:15 AM CDT) WBC 6.29 3.80 - 9.90 K/cumm Hgb 14.7 13.0 - 17.5 g/dL [facility] ([place]) Hct 43.5 38.9 - 50.3 % [facility] ([place]) Plt 123(L) 150 - 400 K/cumm [facility] ([place]) MPV 12.7(H) 9.1 - 12.3 fL [facility] ([place]) RBC 4.62 4.30 - 5.80 M/cumm [facility] ([place]) MCV 94.2 81.3 - 96.4 fL [facility] ([place]) MCH 31.8 27.1 - 33.3 pg [facility] ([place]) MCHC 33.8 32.3 - 35.7 g/dL [facility] ([place]) RDW CV 12.3 11.1 - 14.9 % [facility] ([place]) RDW SD 42.8 35.7 - 48.1 fL [facility] ([place]) NRBC abs 0.00 0.00 - 0.01 K/cumm [facility] ([place]) Blood 09/14/2024 10:1 5 AM CDT 09/14/2024 10:23 AM CDT us Ranulfo Jasso MD LAB BLOOD ORDERABLES Final Resul t [facility] ([place]) 1 [facility] Department [place] [address] * (ABNORMAL) Hemoglobin A1c (09/14/2024 10:15 AM CDT) Hgb A1C 9.3(H) 4.0 - 5.6 % Estimated Average Glucose 220 mg/dL [facility] ([place]) Comment: The ADA recommends reporting an estimated Average Glucose (eAG) with all Hemoglobin A1c results using the equation derived from a study of 507 normal and diabetic adults. Minority populations were underrepresented and children were not included. (Diabetes Care 31:7883-8223, 2008). The eAG is not equivalent to a fasting glucose. Blood 09/14/2024 10:1 5 AM CDT 09/14/2024 10:23 AM CDT us Ranulfo Jasso MD LAB BLOOD ORDERABLES Final Resul t [facility] [place] ([place]) 1 [facility] Department [place] [address] * (ABNORMAL) Lipid panel (09/14/2024 10:15 AM [...] LAB BLOOD ORDERABLES Final Resul t [facility] ([place]) 1 [facility] Department [place] [address] * (ABNORMAL) Comprehensive metabolic panel (09/14/2024 10:15 [...] BLOOD ORDERABLES Final Resul t [facility] ([place]) 1 [facility] Department [place] [address] from Last 3 Months Insurance [facility] Care Teams Health Sciences Program Coordinator Relationship Specialty Start Date End Date Ranulfo Jasso MD [address] [place] [address] DR [address] [place] [address] PCP - General Family Medicine 05/08/23
--- OUTSIDE RECORDS SUMMARY | 2024-10-27 19:53 | XMS_ITS | Encounter Summary ---
Author Organization [facility] Address [address] [place] [address] Care Team Providers Care Landscape Nurseryman Name Role Phone No, Physician Primary Care Provider [phone] Unknown, Notinfile Primary Care Provider Unavail able Ranulfo Jasso MD Primary Care Provider [phone] Encounter Details Date Type Department Care Team (Latest Contact Info) Description 12/20/2019 Ophth Exam Ophthalmology Kasandar Hernandez MD [address] [facility] [address] [place] [address] Social History Tobacco Use Types Packs/Day Years Used Date Smoking Tobacco: Every Day Cigarettes Smokeless Tobacco: Never Alcohol Use Standard Drinks/Week Comments Yes 0 (1 standard drink = 0.6 oz pur e alcohol) Rarely a Beer Sex and Gender Information Value Date Recorded Sex Assigned at Not on file 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 Gender Identity Not on file Sexual Orientation [...] PM Color Right eye Left eye Ishihara External Exam Right eye Left eye External [...] Exam Right eye Left eye Disc Normal, [place] margins PPA superi carlota otherwise crisp Macula Normal, flat Normal, flat Vessels Normal in contour, calibur Katiana l in contour, calibur Periphery Normal, no heme, no exudates Nor mal, no heme, no exudates Care Teams Landscape Nurseryman Relationship Specialty Start Date End Date No, Physician PCP - General 09/18/16 07/21/22 Unknown, Notinfile PCP - General 07/22/22 05/07/23 Ranulfo Jasso MD [address] [facility] [address] [place] [address] PCP - General Family Medicine 05/08/23 documented as of this encounter
--- OUTSIDE RECORDS SUMMARY | 2024-10-27 19:54 | XMS_ITS | Continuity of Care Document ---
Author Organization [facility] Address [address] [place] [address] Phone Care Team Providers Care First Assistant Manager Name Role Phone Heber Monsivais MD Unavailable Unavailable Advance Directives Directive Yes / No Effective Date File Name No Information Encounters Encounter Description Practice Location Reason(s) For Visit Diagnoses Date Provider Providers Copied on Encounter [facility], [address], [place], [place], [address], [place] tel:[phone] [facility] Professional No Information Sep-2 0-200 0 Yodit Buck. [address], [address], [place], [place], [address], [place]. tel:[phone] Referring Provider: Julio C Floyd MD, [address], [place], [address]. tel:[phone] Family History Family Member Type Diagnosis Age [...]
--- OUTSIDE RECORDS SUMMARY | 2024-10-27 19:54 | XMS_ITS | Clinical Summary ---
Author Organization [facility] Address [address] [place] [address] Phone Care Team Providers Care Threading Machine Operator Name Role Phone Provider, None Primary Care [...] to 20 doses. 20 Tab 11/29/2016 Active Encounters Date Type Department Care Team Description 09/10/2024 11:51 AM CDT - 09/10/2024 1:53 PM CDT Emergency 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 RB: AVI Report ID: [id number] Reading Location: [id number] Procedure Note David Lancaster MD - 09/10/2024 [...] Electronically signed by David Lancaster M.D. RB: AVI Report ID: [id number] Reading Location: [id number] IMPRESSION: 1. Bilateral small to moderate-sized fat containing inguinal hernias without signs of inflammation or herniated bowel. 2. Somewhat nodular capsular surface of the liver could indicate a degree of cirrhosis. Compa Wharton MD IMG CT ORDERABLES Final R esult * GOLD TOP TUBE (09/10/2024 12:06 PM CDT) Blood No Phlebotomy Charged / Unknown 09/10/2024 12:06 PM CDT 09/10/2024 12:15 PM CDT Compa Wharton MD CHEMISTRY ORDERABLES Arielle l Result [facility] [place] [address] * BLUE TOP TUBE (09/10/2024 12:06 PM CDT) Blood No Phlebotomy Charged / Unknown 09/10/2024 12:06 PM CDT 09/10/2024 12:15 PM CDT Compa Wharton MD HEMATOLOGY ORDERABLES Fin al Result [facility] [place] [address] * (ABNORMAL) CBC WITH AUTO DIFFERENTIAL (09/10/2024 12:06 PM CDT) WBC 9.10 4.00 - 12.00 10(3)/mcL 09/10/2024 12:50 PM CDT [facility] RBC 5.01 4.40 - 5.80 10(6)/mcL 09/10/2024 12:50 PM CDT [facility] HEMOGLOBIN (HGB) 15.7 13.0 - 16.5 g/dL 09/10/2024 12:50 PM CDT [facility] HEMATOCRIT (HCT) 46.4 38.0 - 50.0 % 09/10/2024 12:50 PM CDT [facility] MCV 92.6 82.0 - 96.0 fL 09/10/2024 12:50 PM CDT [facility] MCH 31.3 26.0 - 32.0 pg 09/10/2024 12:50 PM CDT [facility] MCHC 33.8 31.0 - 36.0 g/dL 09/10/2024 12:50 PM CDT [facility] PLATELET COUNT 128(L) 140 - 440 10(3)/mcL 09/10/2024 12:50 PM CDT [facility] RDW 12.5 11.8 - 15.5 % 09/10/2024 12:50 PM CDT [facility] MPV 13.4(H) 8.0 - 12.6 fL 09/10/2024 12:50 PM CDT [facility] NEUTROPHILS 53.3 40.0 - 68.0 % 09/10/2024 12:50 PM CDT [facility] LYMPHOCYTES 38.4 19.0 - 49.0 % 09/10/2024 12:50 PM CDT [facility] MONOCYTES 4.1 3.0 - 13.0 % 09/10/2024 12:50 PM CDT [facility] EOSINOPHILS 3.2 0.0 - 8.0 % 09/10/2024 12:50 PM CDT [facility] BASOPHILS 0.7 0.0 - 1.0 % 09/10/2024 12:50 PM CDT [facility] IMMATURE GRANULOCYTE 0.3 0.0 - 0.4 % 09/10/2024 12:50 PM CDT [facility] Comment:Immature Granulocyte s includes Metamyelocytes, Myelocytes, and Promyelocytes. ABSOLUTE NEUTROPHILS 4.86 1.40 - 5.30 10(3)/[facility] 09/10/2024 12:50 PM CDT [facility] ABSOLUTE LYMPHOCYTES 3.49(H) 0.90 - 3.30 10(3)/[facility] 09/10/2024 12:50 PM CDT [facility] ABSOLUTE MONOCYTES 0.37 0.10 - 0.90 10(3)/[facility] 09/10/2024 12:50 PM CDT [facility] ABSOLUTE EOSINOPHIL 0.29 0.00 - 0.50 10(3)/[facility] 09/10/2024 12:50 PM CDT [facility] ABSOLUTE BASOPHILS 0.06 0.00 - 0.10 10(3)/[facility] 09/10/2024 12:50 PM CDT [facility] ABSOLUTE IMMATURE GRANULOCYTE 0.03 0.00 - 0.03 10 (3) [facility]. 09/10/2024 12:50 PM CDT [facility] NRBC PER 100 WBC 0 09/11/19 12:50 PM CDT [facility] RESULTS ARE CONSISTENT WITH PERIPHERAL SMEAR REVIEW Yes 09/10/2024 12:50 PM CDT [facility] RBC MORPHOLOGY CONSISTENT WITH INDICES Yes 09/10/2024 12:50 PM CDT [facility] GIANT PLATELETS 1+ 5 12:50 PM CDT [facility] LARGE PLATELETS 1+ 5 12:50 PM CDT [facility] Blood Venipuncture / Unknown 09/10/2024 12:06 PM CDT 09/10/2024 12:15 PM CDT us Compa Wharton MD HEMATOLOGY ORDERABLES Fin al Result [facility] [address] [place] [address] * MAGNESIUM (MG) (09/10/2024 12:06 PM CDT) MAGNESIUM 1.8 1.6 - 2.6 mg/dL 09/10/2024 12:41 PM CDT [facility] Blood Venipuncture / Unknown 09/10/2024 12:06 PM CDT 09/10/2024 12:14 PM CDT Compa Wharton MD CHEMISTRY ORDERABLES Arielle l Result [facility] [address] [place] [address] * (ABNORMAL) LACTIC ACID (LACTATE) (09/10/2024 12:06 PM CDT) LACTIC ACID 2.3(H) 0.7 - 2.0 mmol/L 09/10/2024 12:36 PM CDT [facility] Comment: Specimen is hemolyzed. In vitro hemolysis could affect results. Clinical correlation advised. Blood Venipuncture / Unknown 09/10/2024 12:06 PM CDT 09/10/2024 12:14 PM CDT us Compa Wharton MD CHEMISTRY ORDERABLES Arielle l Result Performing Organization Address City/[facility]/ZIP Co de Phone Number [facility] [address] [place] [address] * (ABNORMAL) CMP (COMPREHENSIVE METABOLIC PANEL) (09/10/2024 12:06 PM CDT) SODIUM 134(L) 136 - 145 mmol/L 09/10/2024 12:41 PM CDT [facility] POTASSIUM 4.1 3.5 - 5.1 mmol/L 09/10/2024 12:41 PM CDT [facility] CHLORIDE 100 98 - 107 mmol/L 09/10/2024 12:41 PM CDT [facility] CO2, VENOUS 24 22 - 30 mmol/L 09/10/2024 12:41 PM T [facility] ANION GAP 14.1 <18.0 mmol/L 09/10/2024 12:41 PM T [facility] GLUCOSE 438(HH) 70 - 99 mg/dL 09/10/2024 12:41 PM CDT [facility] BUN 16 9 - 21 mg/dL 09/10/2024 12:41 PM T [facility] CREATININE, BLOOD 1.08 0.70 - 1.30 mg/dL 09/10/2024 12:41 PM T [facility] BUN/CREATININE RATIO 15 12 - 20 ratio 09/10/2024 12:41 PM [facility] TOTAL PROTEIN 7.9 6.0 - 8.0 g/dL 09/10/2024 12:41 PM T [facility] ALBUMIN 4.5 3.5 - 5.0 g/dL 09/10/2024 12:41 PM T [facility] A/G RATIO 1.3 1.0 - 2.2 09/10/2024 12:41 PM T [facility] CALCIUM 9.8 8.7 - 10.5 mg/dL 09/10/2024 12:41 PM T [facility] T BILI 0.8 0.2 - 1.2 mg/dL 09/10/2024 12:41 PM T [facility] SGOT (AST) 36 <43 U/L 09/10/2024 12:41 PM T [facility] SGPT (ALT) 87(H) <56 U/L 09/10/2024 12:41 PM T [facility] ALKALINE PHOSPHATASE 112 40 - 150 U/L 09/10/2024 12:41 PM T [facility] GFR, ESTIMATED >60 >=60 09/10/2024 12:41 PM T [facility] Comment: Creatinine Clearance is the preferred criteria for selecting drug dose adjustments in renally impaired patients. The GFR is provided as additional pertinent clinical information. GFR is reported in mL/min/1.73 sq m. Calculation based on the Chronic Kidney Disease Epidemiology Collaboration (CKD- EPI) equation refit without adjustment for race. GFR, EST. >60 >=60 025 12:41 PM CDT [facility] GFR, EST. NONAFRICAN >60 >=60 09/10/2024 12:41 PM CDT [facility] Blood Venipuncture / Unknown 09/10/2024 12:06 PM CDT 09/10/2024 12:14 PM CDT us Compa Wharton MD CHEMISTRY ORDERABLES Arielle guevara Result [facility] [place] [address] from Last 3 Months Insurance MEDICAID [facility] Care Teams Threading Machine Operator Relationship Specialty Start Date End Date Provider, None [place] PCP - General 03/05/24
--- OUTSIDE RECORDS SUMMARY | 2024-10-27 19:55 | XMS_ITS | Continuity of Care Document ---
Author Organization [facility] Address [address] [place] [address] Phone Care Team Providers Care Electric Mule Operator Name Role Phone Heebr Monsivais MD Unavailable Unavailable Advance Directives Directive Yes / No Effective Date File Name No Information Encounters Encounter Description Practice Location Reason(s) For Visit Diagnoses Date Provider Providers Copied on Encounter [facility], [address], [place], [place], [id number], [place] tel:[phone] [facility] Professional No Information Sep-2 0-200 0 Yodit Buck. [address] [facility], [address], [place], [place], [id number], [place]. tel:[phone] Referring Provider: Julio C Floyd MD, [address], [place], [address]. tel:[phone] Family History Family Member Type Diagnosis Age At Onset No Information Payers Payer name Insurance type Covered green party ID Authoriza tion(s) No Information Social History [...]
[2024-10-27 20:00] VITALS: BP 152/57; PULSE 99; RESP 16; TEMP 36.1; O2SAT 100
--- NOTE | 2024-10-27 20:05 | ED.GENADULT ---
HPI - General Adult General Stated complaint: poison chad/sumac Source: patient Mode of arrival: ambulatory Limitations: no limitations History of Present Illness HPI narrative: 43-year-old male presented for complaint of an itchy rash to arms and legs. Onset 2-3 days. States his has similar symptoms. He cannot tolerate Benadryl due to it causing anxiety. Denies lip, tongue, or throat swelling, shortness of breath or wheezing. Denies changes to soap, detergent, lotion, or any other exposures. No one else in the house or any contacts with similar symptoms. Taking oatmeal baths for symptoms. Related Data Allergies Allergy/AdvReac Type Severity Reaction Status Date / Time prochlorperazine (From Allergy Severe Agitated Verified 09/05/24 14:44 Compazine) diphenhydramine (From AdvReac Intermediate Hyperactive Verified 09/05/24 14:44 Benadryl) Review of Systems Review of Systems: CONSTITUTIONAL: Denies body aches, fever, chills, or sweats. EYES: Denies visual changes, redness, or discharge. ENT: Denies rhinorrhea, congestion CARDIOVASCULAR: Denies chest pain, palpitations, or edema. RESPIRATORY: Denies cough or dyspnea. GASTROINTESTINAL: Denies abdominal pain, nausea, vomiting, or diarrhea. SKIN: reports rash MUSCULOSKELETAL: Denies back pain, joint pain, or myalgia. NEUROLOGIC: Denies headache, numbness, tingling, or weakness. 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 Please see nursing chart for further information. There is no relevant family history pertinent to the presenting complaint Exam Narrative: GENERAL: Well-appearing HEAD: Normocephalic, atraumatic. EYES: conjunctivae clear, and EOMI. ENT: Mucous membranes moist. Oropharynx without edema, erythema or lesions. NECK: Supple. No lymphadenopathy CHEST: Clear to auscultation. HEART: Regular rate and rhythm. SKIN: Warm, dry. scattered erythematous papules noted to bilateral arms and legs consistent with contact dermatitis. No purulent drainage or tenderness with palpation NEURO: Alert and oriented x3. Course Course Emergency Course: Patient is aware of diagnosis, understands and agrees to treatment plan. Anticipatory guidance given. Patient agrees to follow-up as directed and is aware of reasons to seek care at the emergency department. Portions of this record may have been created with voice recognition software Level of Care: Express Care Visit Vital Signs Vital signs: Reviewed Medical Decision Making MDM Narrative Medical decision making narrative: Discussed physical exam findings. Advised supportive measures and signs/symptoms to go to the ER. Pt is appropriate for outpt treatment and f/u. Differential Diagnosis Differential Diagnosis: Viral exanthema, contact dermatitis, allergic dermatitis, eczema, urticaria, insect bites, impetigo, tinea, folliculitis Discharge Plan Discharge Clinical Impression: Contact dermatitis Patient Disposition: Home Condition: Stable Instructions: Antibiotic Form, Contact Dermatitis (ED) Additional Instructions: Take steroids as directed. Take Zyrtec or Claritin according to package directions for itching Cool compresses to the sites of itching, avoid hot water. Avoid scratching to reduce the risk of infection Follow up with your primary care provider as needed in 1 week Go to the ER for worsening symptoms or concerns (lip, tongue, throat swelling/itching, trouble breathing etc) Patient Language: Qatari Prescriptions: New prednisone 20 mg tablet 20 mg PO DAILY Qty: 18 0RF Rx Instructions: take 3 tablets daily for 3 days, then 2 tablets daily for 3 days then 1 tablet daily for 3 days No Action omeprazole 20 mg capsule,delayed release(DR/EC) 20 mg PO DAILY Qty: 30 5RF Follow-up/Referrals: PHYSICIAN NOT ON STAFF,NONSTAFF [Primary Care Provider] - Time of Disposition: 20:08
== END 2024-10-27 20:15 | disposition home or self-care (01) ==
PROVIDERS: Emergency Provider Nurse Practitioner Family
DX: L25.9 Unspecified contact dermatitis, unspecified cause (principal); K74.60 Unspecified cirrhosis of liver; K21.9 Gastro-esophageal reflux disease without esophagitis; K76.0 Fatty (change of) liver, not elsewhere classified
CPT/HCPCS: 99213; G0463